=== PATIENT | female | born 1990 | race Caucasian/White ===

== ENCOUNTER 2023-08-14 07:00 | Outpatient (CLI) | payer OTHER, SELFPAY ==
--- NOTE | 2023-08-14 07:15 | CRLHL7_ITS ---
For Patients: As a result of the Cures Act, medical imaging exams and procedure reports are released immediately into your electronic medical record. You may view this report before your referring provider. If you have questions, please contact your health care provider. INDICATION: First trimester scan, establish dates. TECHNIQUE: Real-time hernandez-scale imaging of the pelvis was performed. FINDINGS: Dichorionic diamniotic twin gestations with thick inter twin membrane seen. [place]-rump A measures 2.4 centimeters corresponding to 9 weeks 1 day. heart rate measures 134 beats per minute. Yolk sac appears normal. Twin B measures 2.5 centimeters corresponding to 9 weeks 1 day heart rate measures 134 beats per minute. Yolk sac visualized and appears unremarkable. Small subchorionic hemorrhage within the right uterus measuring 1.2 x 1.7 x 1.2 cm. IMPRESSION: Dichorionic diamniotic twin gestations. Gestational age of twin A is 9 weeks 1 day DONATO of 03/17/2024. Gestational age of twin B is 9 weeks 1 day DONATO 03/17/2024. Subchorionic hemorrhage to the right of the uterus, small measuring 1.2 x 1.7 x 1.2 cm. Dictated by Imelda Ch MD @ 08/16/2023 12:55:53 PM (Electronically Signed)
== END 2023-08-14 07:01 | disposition home or self-care (01) ==
PROVIDERS: Visit Provider Advanced Practice Midwife
DX: Z34.91 Encounter for supervision of normal pregnancy, unspecified, first trimester (principal); O20.9 Hemorrhage in early pregnancy, unspecified; O30.041 Twin pregnancy, dichorionic/diamniotic, first trimester; Z3A.09 9 weeks gestation of pregnancy
CPT/HCPCS: 76817

== ENCOUNTER 2023-08-14 08:46 | Outpatient (CLI) | payer OTHER, SELFPAY | END 2023-08-14 08:47 | disposition home or self-care (01) | PROVIDERS: Visit Provider Advanced Practice Midwife | DX: Z34.91 Encounter for supervision of normal pregnancy, unspecified, first trimester (principal) | CPT/HCPCS: 82565; 82570; 84156; 84443; 84450; 84460; 86592; 86703; 86704; 86706; 86762; 86787; 86803; 86850; 86900; 86901; 87086; 87340 ==

== ENCOUNTER 2023-09-10 11:18 | Outpatient (CLI) | payer OTHER, SELFPAY | END 2023-09-10 11:19 | disposition home or self-care (01) | PROVIDERS: Visit Provider Obstetrics & Gynecology | DX: Z34.91 Encounter for supervision of normal pregnancy, unspecified, first trimester (principal); Z3A.13 13 weeks gestation of pregnancy | CPT/HCPCS: 84450; 84460 ==

== ENCOUNTER 2023-10-09 08:30 | Outpatient (CLI) | payer OTHER, MEDICAID, SELFPAY | END 2023-10-09 08:31 | disposition home or self-care (01) | PROVIDERS: Visit Provider Obstetrics & Gynecology | DX: O30.002 Twin pregnancy, unspecified number of placenta and unspecified number of amniotic sacs, second trimester (principal); Z3A.17 17 weeks gestation of pregnancy | CPT/HCPCS: 82570; 84156 ==

== ENCOUNTER 2023-12-15 08:23 | Outpatient (CLI) | payer OTHER, BC, SELFPAY | END 2023-12-15 08:24 | disposition home or self-care (01) | LOC: NFLDREF 11:38 | PROVIDERS: Visit Provider Obstetrics & Gynecology | DX: Z34.91 Encounter for supervision of normal pregnancy, unspecified, first trimester (principal) | CPT/HCPCS: 86850 ==

== ENCOUNTER 2023-12-15 08:25 | Outpatient (CLI) | payer OTHER, BC, SELFPAY ==
--- NOTE | 2023-12-15 08:45 | US_ITS ---
Final Report Patient: YAERD MCCLAIN Facility:?[facility] Patient ID:?[id number] Site Patient ID:?[id number]. Site :?1990 Study:?US OB Pelvis growth check/TWINS-12/15/2023 10:35:23 AM Ordering Physician:MAAME Final Report: Indication: Evaluate growth Technique: Grayscale ultrasound imaging of a twin from a transabdominal approach Comparison: None available Findings: Baby A: Breech presentation. Heart rate 159 beats per minute. The single deepest vertical pocket of amniotic fluid is 5 centimeters. Biparietal diameter: 6.3 centimeters Head circumference: 25.1 centimeters Abdominal circumference: 22.4 centimeters Femur length: 4.9 centimeters. The composite sonographic estimated gestational age is 26 weeks and 4 days. The estimated weight is 964 grams or 2 pounds and 2 ounces. This corresponds to the 11th percentile for gestational age. Baby B: Vertex presentation. Heart rate is 147 beats per minute. The single deepest vertical pocket of amniotic fluid is 7.7 centimeters. Biparietal diameter: 6.6 centimeters Head circumference: 24.8 centimeters Abdominal circumference: 23.6 centimeters Femur length: 5.4 centimeters The composite sonographic estimated gestational age is 27 weeks and 3 days. The estimated weight is 1154 grams or 2 pounds and 9 ounces. This corresponds to the 53rd percentile. Impression: 1. Viable twin intrauterine . 2. Twin A with estimated weight at the 11th percentile. 3. Twin B with estimated weight at the 53rd percentile. Dictated by Jacquelyn Moffett MD @ 12/16/2023 5:36:36 AM (Electronic Signature)
== END 2023-12-15 08:26 | disposition home or self-care (01) ==
PROVIDERS: Visit Provider Obstetrics & Gynecology
DX: O30.002 Twin pregnancy, unspecified number of placenta and unspecified number of amniotic sacs, second trimester (principal); Z3A.27 27 weeks gestation of pregnancy
CPT/HCPCS: 76816

== ENCOUNTER 2024-01-07 10:56 | Outpatient (CLI) | payer OTHER, BC, SELFPAY | END 2024-01-07 10:57 | disposition home or self-care (01) | PROVIDERS: Visit Provider Obstetrics & Gynecology | DX: O26.893 Other specified pregnancy related conditions, third trimester (principal); L29.8 Other pruritus | CPT/HCPCS: 80076; 82239; 82565; 84520 ==

== ENCOUNTER 2024-01-13 13:25 | Outpatient (CLI) | payer OTHER, BC, SELFPAY ==
[2024-01-13 13:43] VITALS: PULSE 113; O2SAT 95
[2024-01-13 13:49] VITALS: BP 137/70; PULSE 110; RESP 16; TEMP 37
[2024-01-13 14:05] VITALS: BP 136/68; PULSE 95
[2024-01-13 14:09] LABS: Hematocrit 33.7 % (33.0-51.0); Hemoglobin* 11.4 gm/dL (12.0-16.0); Mean Corpuscular HGB Conc 34 gm/dL (32-36); Mean Corpuscular Hemoglobin 30 pg (26-34); Mean Corpuscular Volume 88 fL (80-100); Platelet Count* 242 K/uL (140-440); Red Blood Count 3.82 m/uL (4.00-5.20); White Blood Count* 8.06 K/uL (4.50-11.00)
[2024-01-13 14:16] LABS: Slide Review Reflex No
[2024-01-13 14:26] LABS: Alanine Aminotransferase* 52 U/L (4-35); Aspartate Amino Transferase* 47 U/L (12-35); Blood Urea Nitrogen* 9 mg/dL (5-24); Creatinine* 0.5 mg/dL (0.5-1.5); Estimated Glomerular Filt Rate 127 ml/min
[2024-01-13 14:37] VITALS: BP 131/70; PULSE 97
[2024-01-13 14:47] LABS: Total Protein Urine 11 mg/dL
[2024-01-13 14:49] LABS: Creatinine Urine 217.7 mg/dL
[2024-01-13 14:52] VITALS: BP 134/67; PULSE 107
[2024-01-13 15:07] VITALS: BP 129/63; PULSE 102
--- NOTE | 2024-01-13 15:37 | PC.OBNST ---
NST Note NST Note Start: 01/13/24 13:26 Freq: ONCE Status: Active Protocol: Document 01/13/24 15:33 JOSEPHZMARTHA (Rec: 01/13/24 15:37 ROZMARTHA [id number]) NST Note 5 Para (# of births) 3 EDC 03/11/24 Gestational Age In Weeks & Days 31 Weeks & 5 Days High Risk Factors High Blood Pressure - Preexisting,Twins Patient Presented with Complaint(s) of Other Other Complaints Pt. called clinic with reports of elevated BP and occasional MCGILL. Pt. evaluated on Center, Labs and Serial BP's obtained. All Labs WNL and BP' s also WNL. F/U this . Pt. to report BP's > or = to 150/100 and to bring her BP log with her to appointment. Appropriate for Gestational Age Yes NICO Piedra Date 01/13/24 Appropriate for Gestational Age Yes NICO Omer RN OB NST charge Yes Complete NST Note via Write Note Yes The provider's electronic signature indicates the NST is reactive/appropriate for gestational age. *Note to provider: If an addendum is required, open the patient's chart and click on the note under the Nurse/Allied Health tab.
== END 2024-01-13 15:20 | disposition home or self-care (01) ==
LOC: OB OUT 13:25 → OB 13:25
PROVIDERS: Visit Provider Obstetrics & Gynecology
DX: O10.913 Unspecified pre-existing hypertension complicating pregnancy, third trimester (principal); O30.003 Twin pregnancy, unspecified number of placenta and unspecified number of amniotic sacs, third trimester; Z3A.31 31 weeks gestation of pregnancy
CPT/HCPCS: 36415; 59025; 82565; 82570; 84156; 84450; 84460; 84520; 85027; G0463

== ENCOUNTER 2024-01-15 12:48 | Outpatient (CLI) | payer OTHER, BC, SELFPAY ==
--- NOTE | 2024-01-15 13:00 | US_ITS ---
Patient: YARED MCCLAIN Facility:?[facility] Patient ID:?[id number] Site Patient ID:?[id number]. Site :?1990 Study:?US-OB Pelvis BPP w/growth TWINS-01/15/2024 2:02:36 PM Ordering Physician:MAAME Final Report: 3rd TRIMESTER TWIN GROWTH INDICATION: Third trimester scan, evaluate growth in a twin gestation. COMPARISON: 12/15/2023 TECHNIQUE: Real-time grayscale imaging of the twins was performed as well as color Doppler and spectral Doppler analysis of the umbilical arteries. FINDINGS: Sonographic imaging demonstrates a living twin intrauterine gestation. Twin A demonstrates a regular cardiac rate of 147 beats per minute. Twin A has a aris breech position. The placenta lies posterior. Amniotic fluid volume appears normal and the largest fluid pocket measures 4.0 cm. The estimated weight is 1753 gm which lies at the 21st percentile. BPD and FL less than 3rd percentile. HC 5th percentile. AC 76th percentile. The HC/AC ratio measures 0.98 range (0.97-1.18). Normal gross body movements, tone and respiratory activity. Twin B demonstrates a regular cardiac rate of 126 beats per minute. Twin B has a breech position. The placenta lies posterior. Amniotic fluid volume appears normal and the largest fluid pocket measures 4.1 cm. The estimated weight is 1926 gm which lies at the 46th percentile. BPD 8th percentile. HC 22nd percentile, AC 89th percentile, FL 4th percentile. The HC/AC ratio measures 0.99 range (0.96-1.15). Normal tone, respiratory activity and body movements. IMPRESSION: Appropriate interval growth of the twins. Detailed dates and biometry data detailed above. 06/03 BPP for both twins. Dictated by Aramis Sidhu MD @ 01/16/2024 11:17:50 AM Signed by:?Aramis Sidhu MD @01/16/2024 11:17:50 AM (Electronic Signature)
== END 2024-01-15 12:49 | disposition home or self-care (01) ==
LOC: US 12:49
PROVIDERS: Visit Provider Obstetrics & Gynecology
DX: O30.003 Twin pregnancy, unspecified number of placenta and unspecified number of amniotic sacs, third trimester (principal)
CPT/HCPCS: 76816; 76819

== ENCOUNTER 2024-01-22 12:48 | Outpatient (CLI) | payer OTHER, BC, SELFPAY ==
--- NOTE | 2024-01-22 13:00 | US_ITS ---
Patient: YARED MCCLAIN Facility:?[facility] Patient ID:?[id number] Site Patient ID:?[id number]. Site :?1990 Study:?US-OB Pelvis BPP twins-01/22/2024 1:54:48 PM Ordering Physician:MAAME Final Report: OBSTETRICAL ULTRASOUND INDICATION: BPP, twins, hypertension, obesity. DONATO by LMP: 03/11/2024. GA: 33w, 0d. COMPARISON: 01/15/2024. Gestation: Twin. Twin A: AMNIOTIC FLUID: 5.3 cm. BIOPHYSICAL PROFILE: Total score: 8. Gross body movements: 2. tone: 2. Respiratory activity: 2. Amniotic fluid: 2. (SDP N: Increase 2 x 1 cm) PLACENTA: Technique: Transabdominal. PLACENTA POSITION: Posterior. DOPPLER: heart rate: 133 bpm. Twin B: POSITIONING: Breech. AMNIOTIC FLUID: 7.4 cm. BIOPHYSICAL PROFILE: Total score: 8. Gross body movements: 2. tone: 2. Respiratory activity: 2. Amniotic fluid: 2. (SDP N: Increase 2 x 1 cm) PLACENTA: Technique: Transabdominal. PLACENTA POSITION: Posterior. DOPPLER: heart rate: 149 bpm. IMPRESSION: Biophysical profile score 8/8 for twin A and for twin B. Imelda Ch M.D. Diagnostic/Breast Radiologist [email or web address] TKP/jhone / be/Dictated by: Imelda Ch MD @ 01/23/2024 7:32:00 PM Signed by:?Imelda Ch MD @01/25/2024 5:34:03 PM (Electronic Signature)
== END 2024-01-22 12:49 | disposition home or self-care (01) ==
LOC: US 12:49
PROVIDERS: Visit Provider Obstetrics & Gynecology
DX: O30.003 Twin pregnancy, unspecified number of placenta and unspecified number of amniotic sacs, third trimester (principal); O10.913 Unspecified pre-existing hypertension complicating pregnancy, third trimester; Z3A.33 33 weeks gestation of pregnancy
CPT/HCPCS: 76819

== ENCOUNTER 2024-01-29 12:45 | Outpatient (CLI) | payer OTHER, BC, SELFPAY ==
--- NOTE | 2024-01-29 13:00 | US_ITS ---
Patient: YARED MCCLAIN Facility:?[facility] Patient ID:?[id number] Site Patient ID:?[id number]. Site :?1990 Study:?US-OB Pelvis Twin BPP's-01/29/2024 2:09:39 PM Ordering Physician:?Usrzula Clark Final Report: INDICATION: DI/DI Twins CHT, Obesity COMPARISON: 01/22/2024 TECHNIQUE: Real time hernandez scale imaging of the twin was performed. Without non-stress testing. FINDINGS: Sonographic imaging demonstrates a twin living intrauterine gestation. TWIN A: Fetus demonstrates a regular cardiac rate of 138 beats per minute. Fetus has a breech maternal left position. The amniotic fluid volume appears normal and there is a single deepest pocket measurement of 4.7 cm. The fetus was active and demonstrated normal breathing movements. There was normal flexion and extension of the trunk and extremities. TWIN B: Fetus demonstrates a regular cardiac rate of 147 beats per minute. Fetus has a breech maternal right position. The amniotic fluid volume appears normal and there is a single deepest pocket measurement of 5.3 cm. The fetus was active and demonstrated normal breathing movements. There was normal flexion and extension of the trunk and extremities. IMPRESSION: TWIN A: Normal biophysical profile score of 8 out of 8. TWIN B: Normal biophysical profile score of 8 out of 8. Dictated by Aramis Sidhu MD @ 02/01/2024 2:55:20 PM Signed by:?Aramis Sidhu MD @02/01/2024 2:55:20 PM (Electronic Signature)
== END 2024-01-29 12:46 | disposition home or self-care (01) ==
LOC: US 12:46
PROVIDERS: Visit Provider Obstetrics & Gynecology
DX: O30.003 Twin pregnancy, unspecified number of placenta and unspecified number of amniotic sacs, third trimester (principal); O10.919 Unspecified pre-existing hypertension complicating pregnancy, unspecified trimester
CPT/HCPCS: 76819

== ENCOUNTER 2024-01-29 14:14 | Outpatient (CLI) | payer OTHER, BC, SELFPAY | END 2024-01-29 14:15 | disposition home or self-care (01) | PROVIDERS: Visit Provider Obstetrics & Gynecology | DX: O10.913 Unspecified pre-existing hypertension complicating pregnancy, third trimester (principal); Z3A.34 34 weeks gestation of pregnancy | CPT/HCPCS: 82239; 82565; 82570; 84156; 84450; 84460; 84520 ==

== ENCOUNTER 2024-01-29 14:44 | Outpatient (CLI) | payer OTHER, BC, SELFPAY ==
[2024-01-29 14:58] VITALS: RESP 18; TEMP 36.7
[2024-01-29 15:00] VITALS: PULSE 79; O2SAT 98
[2024-01-29 15:05] VITALS: PULSE 84; O2SAT 98
[2024-01-29 15:10] VITALS: BP 130/76; PULSE 79
[2024-01-29 15:28] VITALS: BP 130/72; PULSE 79
[2024-01-29 15:43] VITALS: BP 122/72; PULSE 84
[2024-01-29] MEDS: BETAMETHASONE SOD PHOS/ACETATE 6 MG/ML ML 12 MG IM (15:59)
--- NOTE | 2024-01-29 16:40 | PC.OBNST ---
NST Note NST Note Start: 01/29/24 14:49 Freq: ONCE Status: Active Protocol: Document 01/29/24 16:37 WK (Rec: 01/29/24 16:40 WK [id number]) NST Note 4 Para (# of births) 3 EDC 03/11/24 Gestational Age In Weeks & Days 34 Weeks & 0 Days High Risk Factors High Blood Pressure - Gestational Patient Presented with Complaint(s) of Other Other Complaints Pt sent over from [facility] for serial BP's and betamethasone while waiting for labs, that were drawn in the clinic. Reactive Yes RN Saida RNC Date 01/29/24 Reactive Yes NICO Acevedo RN Date 01/29/24 OB NST charge Yes Complete NST Note via Write Note Yes The provider's electronic signature indicates the NST is reactive/appropriate for gestational age. *Note to provider: If an addendum is required, open the patient's chart and click on the note under the Nurse/Allied Health tab.
== END 2024-01-29 16:05 | disposition home or self-care (01) ==
LOC: OB OUT 14:45 → OB 14:46
PROVIDERS: Visit Provider Obstetrics & Gynecology
DX: O30.049 Twin pregnancy, dichorionic/diamniotic, unspecified trimester (principal)
CPT/HCPCS: 59025; G0463; J0702

== ENCOUNTER 2024-01-30 11:23 | Outpatient (CLI) | payer OTHER, BC, SELFPAY | END 2024-01-30 11:24 | disposition home or self-care (01) | PROVIDERS: Visit Provider Obstetrics & Gynecology | DX: O14.93 Unspecified pre-eclampsia, third trimester (principal) | CPT/HCPCS: 82239; 82565; 82570; 84156; 84450; 84460; 84520 ==

== ENCOUNTER 2024-02-06 10:31 | Outpatient (CLI) | payer OTHER, BC, SELFPAY | END 2024-02-06 10:32 | disposition home or self-care (01) | PROVIDERS: Visit Provider Obstetrics & Gynecology | DX: R74.8 Abnormal levels of other serum enzymes (principal); Z87.59 Personal history of other complications of pregnancy, childbirth and the puerperium | CPT/HCPCS: 84450; 84460 ==

== ENCOUNTER 2024-04-26 10:24 | Outpatient (CLI) | payer OTHER, BC, SELFPAY | END 2024-04-26 10:25 | disposition home or self-care (01) | LOC: NFLDREF 04-29 02:46 | PROVIDERS: PCP Physician Assistant Medical; Visit Provider Physician Assistant Medical | DX: R74.8 Abnormal levels of other serum enzymes (principal) | CPT/HCPCS: 84450; 84460 ==

== ENCOUNTER 2025-03-16 13:39 | Outpatient (CLI) | payer OTHER, BC, SELFPAY | END 2025-03-16 13:40 | disposition home or self-care (01) | PROVIDERS: PCP Physician Assistant Medical; Visit Provider Physician Assistant Medical | DX: K76.0 Fatty (change of) liver, not elsewhere classified (principal) | CPT/HCPCS: 82784; 84450; 84460; 86231; 86258; 86364 ==